=== PATIENT | female | born 1985 | race African-American/Black ===

== ENCOUNTER → 2019-02-15 | Outpatient (CLI) | payer BC ==
[~2019-02-15] MED LIST: ALBUTEROL SULF8.5 GM INH; ASCORBIC ACID500 MG PO; AUGMENTIN 875-1 EACH PO; BROMFED DM COU118 ML; FEOSOL325 MG PO; FOLIC ACID1 MG PO; TYLENOL WITH C1 EACH PO
--- NOTE | 2019-02-16 08:44 | Diagnostic Imaging Report ---
#[id number] - MGDXBIL #BILATERAL FIRST EVER DIGITAL DIAGNOSTIC MAMMOGRAM WITH CAD: 02/15/2019 No prior exams were available for comparison. Current study contains 6 films. The tissue of both breasts is extremely dense, which lowers the sensitivity of mammography. Current study was also evaluated with a Computer Aided Detection (CAD) system. No significant masses, calcifications, or other findings are seen in either breast. IMPRESSION: NEGATIVE See the report for ultrasound performed the same day for additional details. There is no mammographic evidence of malignancy. A 3 year screening mammogram is recommended. The patient will be notified by letter of the results. HENNY MARTINEZ M.D. ct/penrad:02/15/2019 12:28:15 Spring Coverer: Betty DIXON)([employer]), [facility] letter sent: Normal Exam Mammogram BI-RADS: 1 Negative
--- NOTE | 2019-02-16 08:44 | Diagnostic Imaging Report ---
#[id number] - USBRECOMLT ULTRASOUND OF THE LEFT BREAST : 02/15/2019 Comparison is made to exam dated: 02/15/2019 mammogram - [facility]. Real-time ultrasound was performed on the left breast. There are no solid or cystic masses identified. IMPRESSION: BENIGN There is no sonographic evidence of malignancy. A 3 year screening mammogram is recommended. HENNY MARTINEZ M.D. ct/penrad:02/15/2019 12:28:52 Palaeontologist: LOY PUGH RDNY, [facility] letter sent: Normal Exam Ultrasound BI-RADS: 2 Benign
--- NOTE | 2019-02-16 08:44 | Diagnostic Imaging Report ---
#[id number] - USBRECOMRT ULTRASOUND OF THE RIGHT BREAST : 02/15/2019 Comparison is made to exam dated: 02/15/2019 mammogram - [facility]. Real-time ultrasound was performed on the right breast. There are no solid or cystic masses identified. IMPRESSION: BENIGN There is no sonographic evidence of malignancy. A 3 year screening mammogram is recommended. HENNY MARTINEZ M.D. ct/penrad:02/15/2019 12:29:13 Gameroom Technician: LOY PUGH RDIL, [facility] letter sent: Normal Exam Ultrasound BI-RADS: 2 Benign
== END ==
LOC: MAMMO 10:44
PROVIDERS: ATTEND Internal Medicine
DX: N60.12 Diffuse cystic mastopathy of left breast (principal)
CPT/HCPCS: 77066

== ENCOUNTER → 2024-04-13 | Outpatient (REF) | payer BC | LOC: MAMMO 15:19 | PROVIDERS: ATTEND Internal Medicine | DX: Z12.31 Encounter for screening mammogram for malignant neoplasm of breast (principal) | CPT/HCPCS: 77067 ==